=== PATIENT | male | born 1985 | race Two or more races ===

== ENCOUNTER 2024-11-29 20:49 | Inpatient (IN) | payer OTHER ==
[~2024-11-29] VITALS: Ht 170.2 cm; Wt 84.0 kg
--- NOTE | 2024-11-29 21:07 | ED.PDOC ---
HPI Comments 39-year-old came to ER by EMS for NSTEMI. Per EMS, about 8 hours ago, patient was found unresponsive secondary to overdose of opiates. CPR was initiated by fire department then, as 8mg of Narcan was given. As paramedics came, IV access was obtained, and another 2 mg of Narcan was given. Patient regained consciousness, and patient was brought to the [facility]. Diagnostics were done and noted that troponin levels were elevated so patient was transferred here for further evaluation and management, working impression of NSTEMI. At this time, patient complaining of 5/10 chest pains. Chief Complaint: Chest Pains Time Seen by MD: 21:06 Reviewed Notes: Nurses Notes Allergies: Coded Allergies: NO KNOWN ALLERGIES (Unverified , 11/29/24) Information Source: Patient Mode of Arrival: Ambulatory Severity: Mild Timing: Hours Duration: Intermittent Prehospital treatment: CPR Location: Substernal Radiation: No Radiation Quality: Aching Onset: Other (s/p CPR) Cardiac Risk Factors: Other (drugs) PE Risk Factors: Recent Trauma Past Medical History PAST MEDICAL HISTORY: Denies Surgical History: Denies all surgeries Family History Family History: Reviewed,noncontributory to illness Social History Smoker: Non-Smoker Alcohol: Denies ETOH Use Drugs: Other Lives In: Home Constitutional: denies: chills, diaphoresis, fatigue, fever, malaise, sweats, weakness, others EENTM: denies: blurred vision, double vision, ear bleeding, ear discharge, ear drainage, ear pain, ear ringing, eye pain, eye redness, hearing loss, mouth pain, mouth swelling, nasal discharge, nose bleeding, nose congestion, nose pain, photophobia, tearing, throat pain, throat swelling, voice changes, others Respiratory: denies: cough, hemoptysis, orthopnea, SOB at rest, shortness of breath, SOB with excertion, stridor, wheezing, others Cardiovascular: reports: chest pain; denies: dizzy spells, diaphoresis, Dyspnea on exertion, edema, irregular heart beat, left arm pain, lightheadedness, palpitations, PND, syncope, others Gastrointestinal: denies: abdomen distended, abdominal pain, blood streaked bowels, constipated, diarrhea, dysphagia, difficulty swallowing, hematemesis, melena, nausea, poor appetite, poor fluid intake, rectal bleeding, rectal pain, vomiting, others Genitourinary: denies: burning, dysuria, flank pain, frequency, hematuria, incontinence, penile discharge, penile sore, pain, testicle pain, testicle swelling, urgency, others Neurological: denies: dizziness, fainting, headache, left sided numbness, left sided weakness, numbness, paresthesia, pre-existing deficit, right sided numbness, right sided weakness, seizure, speech problems, tingling, tremors, weakness, others Musculoskeletal: denies: back pain, gout, joint pain, joint swelling, muscle pain, muscle stiffness, neck pain, others Integumetry: denies: bruises, change in color, change in hair/nails, dryness, laceration, lesions, lumps, rash, wounds, others Allergic/Immunocompromised: denies: Difficulty Healing, Frequent Infections, Hives, Itching, others Hematologic/Lymphatic: denies: anemia, blood clots, easy bleeding, easy bruising, swollen glands, others Endocrine: denies: excessive hunger, excessive sweating, excessive thirst, excessive urination, flushing, intolerance to cold, intolerance to heat, unexplained weight gain, unexplained weight loss, others Psychiatric: denies: anxiety, bipolar disorder, depression, hopeless, panic disorder, schizophrenia, sleepless, suicidal, others Physical Exam General Appearance: No Apparent Distress, Normal HEENT: Normal ENT Inspection, Pharynx Normal, TMs Normal Neck: Full Range of Motion, Non-Tender, Normal, Normal Inspection Respiratory: Chest Non-Tender, Lungs Clear, No Accessory Muscle Use, No Respiratory Distress, Normal Breath Sounds Cardiovascular: No Edema, No JVD, No Murmur, No Gallop, Normal Peripheral Puls es, Regular Rate/Rhythm Breast Exam: Deferred Gastrointestinal: No Organomegaly, Non Tender, No Pulsatile Mass, Normal Bowel Sounds, Soft Genitalia: Deferred Pelvic: Deferred Rectal: Deferred Extremities: No calf tenderness, Normal capillary refill, Normal inspection, Normal range of motion, Non-tender, No pedal edema Musculoskeletal : Apperance: Normal Neurologic: Alert, clothing cutter II-XII nml as Tested, No Motor Deficits, Normal Affect, Normal Mood, No Sensory Deficits Cerebellar Function: Normal Reflexes: Normal Skin: Dry, Normal Color, Warm Lymphatic: No Adenopathy Was a procedure done? Was a procedure done?: No CP Differential Dx Differential Diagnosis: Angina, Anxiety / Panic Attack Differential Diagnosis: Angina, Chest Wall Pain, Costochondritis, Esophageal reflux/spasm, Gastritis, Myocardial Infarction X-Ray, Labs, Meds, VS Vital Signs Date Time Temp Pulse Resp B/P (MAP) Pulse Ox O2 Delivery O2 Flow Rate FiO2 11/29/24 21:28 98.3 103 18 114/55 (74) 95 98.3 11/29/24 20:50 95 11/29/24 20:49 97.9 104 18 108/56 (73) 97 97.9 Lab Test 11/29/24 21:07 Range/Units White Blood Count 10.8 4.4-10.8 10^3/uL Red Blood Count 5.58 4.5-5.90 10^6/uL Hemoglobin 15.2 13.5-17.5 g/dL Hematocrit 44.8 41.0-53.0 % Mean Corpuscular Volume 80.2 80.0-100.0 fL Mean Corpuscular Hemoglobin 27.2 L 28.0-32.0 pg Mean Corpuscular Hemoglobin Concent 33.9 32.0-36.0 g/dL Red Cell Distribution Width 14.0 11.8-14.3 % Platelet Count 273 140-450 10^3/uL Mean Platelet Volume 7.2 6.9-10.8 fL Neutrophils (%) (Auto) 71.7 37.0-80.0 % Lymphocytes (%) (Auto) 20.6 10.0-50.0 % Monocytes (%) (Auto) 7.0 0.0-12.0 % Eosinophils (%) (Auto) 0.3 0.0-7.0 % Basophils (%) (Auto) 0.4 0.0-2.0 % Neutrophils # (Auto) 7.7 1.6-8.6 10 ^3/uL Lymphocytes # (Auto) 2.2 0.4-5.4 10 ^3/uL Monocytes # (Auto) 0.8 0-1.3 10 ^3/uL Eosinophils # (Auto) 0 0-0.8 10 ^3/uL Basophils # (Auto) 0 0-0.2 10 ^3/uL Nucleated Red Blood Cells 0.3 % Sodium Level 140 136-145 mmol/L Potassium Level 4.4 3.5-5.1 mmol/L Chloride Level 110 H 98-107 mmol/L Carbon Dioxide Level 21 20-31 mmol/L Anion Gap 9 5-15 Blood Urea Nitrogen 9 9-23 mg/dL Creatinine 0.84 0.700-1.30 mg/dL Glomerular Filtration Rate Calc 114 >90 mL/min BUN/Creatinine Ratio 10.7 10.0-20.0 Serum Glucose 102 74-106 mg/dL Calcium Level 9.4 8.7-10.4 mg/dL Troponin I High Sensitivity 310 *H </=54 ng/L Time of 1ST Reevaluation: 21:01 Reevaluation 1ST: Unchanged Patient Education/Counseling: Diagnosis, Treatment Family Education/Counseling: No Family Present Departure 1 Departure Time of Disposition: 22:07 (Patient presented with chest pain that was concerning for possible STEMI, ACS, PE, Pneumonia, Muscle Strain, COPD, Dissection. Data: 1. I ordered and reviewed the result of at least 3 labs inclu ding a CBC, BMP, and Troponin. 2. I independently interpreted the following tests: EKG which shows left bundle-branch and Chest X-ray which shows benign chest.Risk:This patient has a high risk of morbidity due to further diagnostic testing or treatment and may suffer from an acute cardiac or respiratory disorder. Workup reveals concern for ACS and overdose and patient should be adm itted for further workup and possible expert consultation. ) Impression: Primary Impression: Acute chest pain Additional Impressions: Elevated troponin Opiate overdose Qualified Codes: T40.601A - Poisoning by unspecified narcotics, accidental (unintentional), initial encounter Disposition: ADMITTED INPATIENT Admit to: Tele Condition: Serious Critical Care Note Critical Care Time?: Yes (35 min-critical care time only) Critical care comment: Chest pain, overdose Authorized and Performed by: Frida Mark MD Total critical care time: Approximately 39 minutes Due to a high probability of clinically significant, life threatening deterioration, the patient required my highest level of preparedness to intervene emergently and I personally spent this critical care time directly and personally managing the patient. This critical care time included obtaining a history; examining the patient; pulse oximetry; ordering and review of studies; arranging urgent treatment with development of a management plan; evaluation of patient's response to treatment; frequent reassessment; and, discussions with other providers. This critical care time was performed to assess and manage the high probability of imminent, life-threatening deterioration that could result in multi-organ failure. It was exclusive of separately billable procedures and treating other patients and teaching time. Please see my other sections and the rest of the note for further information on patient assessment and treatment. Stability Stability form required: No Heart Score Heart Score: Heart Score Response (Comments) Value History Slightly Suspicious 0 EKG Normal 0 Age <45 0 Risk Factors 1 or 2 risk factors 1 Troponin 1-2 x's Normal limit 1 Total 2 I personally scribed for FRIDA MARK MD ([email or web address]) on 11/29/24 at 21:07. Electronically submitted by Rtio Gray ([email or web address]). FRIDA MARK MD November 29, 2024 21:07
[2024-11-29 21:15] LABS: Basophils # (auto) 0 10 ^3/uL (0-0.2); Basophils % (auto) 0.4 % (0.0-2.0); Eosinophils # (auto) 0 10 ^3/uL (0-0.8); Eosinophils % (auto) 0.3 % (0.0-7.0); Hematocrit 44.8 % (41.0-53.0); Hemoglobin 15.2 g/dL (13.5-17.5); Lymphocytes # (auto) 2.2 10 ^3/uL (0.4-5.4); Lymphocytes % (auto) 20.6 % (10.0-50.0); Mean Corpuscular Hemoglobin 27.2 pg (28.0-32.0); Mean Corpuscular Hgb Conc. 33.9 g/dL (32.0-36.0); Mean Corpuscular Volume 80.2 fL (80.0-100.0); Monocytes # (auto) 0.8 10 ^3/uL (0-1.3); Neutrophils # (auto) 7.7 10 ^3/uL (1.6-8.6); Neutrophils % (auto) 71.7 % (37.0-80.0); Nucleated Red Blood Cells % 0.3 %; Platelet Count (auto) 273 10^3/uL (140-450); Red Blood Cells 5.58 10^6/uL (4.5-5.90); White Blood Cell 10.8 10^3/uL (4.4-10.8)
[2024-11-29 21:26] LABS: Potassium 4.4 mmol/L (3.5-5.1); Sodium 140 mmol/L (136-145)
[2024-11-29 21:27] LABS: Anion Gap 9 (5-15); Carbon Dioxide 21 mmol/L (20-31)
[2024-11-29 21:28] VITALS: PULSE 103; RESP 18; O2SAT 95
[2024-11-29 21:28] LABS: Calcium 9.4 mg/dL (8.7-10.4); Chloride 110 mmol/L (98-107)
[2024-11-29 21:32] LABS: BUN/Creatinine Ratio 10.7 (10.0-20.0); Blood Urea Nitrogen 9 mg/dL (9-23); Glucose 102 mg/dL (74-106)
--- NOTE | 2024-11-29 21:59 | DVH ---
CHEST RADIOGRAPH Indication: chest pain Technique: Single frontal view of the chest was obtained COMPARISON: None FINDINGS: Lines and Tubes: None Lungs: Clear Pleura: No effusion. No pneumothorax. Cardiomediastinal contours: Unremarkable IMPRESSION: No abnormality demonstrated.
--- NOTE | 2024-11-29 23:41 | DVHHP2 ---
History of Present Illness History of Present Illness Patient is 39 years old male with past medical history of seizure disorder on Keppra was brought in from [facility] due to an STEMI. As per chart review and history taken from with the patient patient overdose opiate today and use on unresponsive, ferrous 72 gave him [place] mg also started CPR, after EMS arrival he also had 2 mg [place]. Patient was taken to [facility] where he was found to have elevated troponin I. Patient was transferred to [facility] for further evaluation and care of an NSTEMI. Patient denied suicide attempt of overdose. As per patient he also had history of brain abscess and cardiac involvement from IV drug abuse. Patient denied any chest pain or shortness of breath, fever, diarrhea, acute joint pain or swelling. Initial lab workup revealed troponin 310. EKG with a sinus rhythm. UDS positive for methamphetamine and fentanyl. Past Medical History Seizure disorder Past Surgical History None Family History Mom had diabetes mellitus dad had coronary artery disease Past Social History Patient lives with his dad, use fentanyl, used to use methamphetamine, smoke half a pack of cigarettes, denies alcohol zone. Home meds Keppra 1000 mg b.i.d. Review of Systems Review of Systems Allergy- NKDA Patient was seen today at the bedside. Cardiovascular- deny acute chest pain or shortness of breath or cough or palpitation Respiratory denies cough or short of breath or wheezing Gastrointestinal- denies any rectal bleeding, nausea or vomiting Musculoskeletal-denies acute joint swelling or tenderness or redness Neurological- denies acute dysarthria, dysphagia, change in vision Psychiatry- denies depression or SI or HI Skin- denies acute rash or purpura Allergies: Coded Allergies: NO KNOWN ALLERGIES (Unverified , 11/29/24) Exam Vital Signs Vital Signs Date Time Temp Pulse Resp B/P (MAP) Pulse Ox O2 Delivery O2 Flow Rate FiO2 11/29/24 22:08 96 11/29/24 21:28 18 95 Room Air* 0 21 11/29/24 21:28 98.3 114/55 (74) 98.3 Exam General examination- , alert, oriented, spider telangiectasia on the chest HEENT- PEERLA, no acute nasal discharge Cardiovascular- S1-S2 audible, rate and rhythm regular, no murmur, chest wall tenderness++ Respiratory- CTAB, no wheeze or rhonchi Gastrointestinal-nontender, bowel sound+. Nondistended Musculoskeletal-no acute joint swelling or tenderness or redness Lower extremity- no leg edema Neurological- cranial nerves intact , no acute dysarthria or dysphagia Psychiatry- denies depression or SI or HI Skin- no acute rash or purpura Labs/Xrays Labs Test 11/29/24 22:26 11/29/24 21:07 Range/Units Troponin I High Sensitivity 276 *H </=54 ng/L White Blood Count 10.8 4.4-10.8 10^3/uL Red Blood Count 5.58 4.5-5.90 10^6/uL Hemoglobin 15.2 13.5-17.5 g/dL Hematocrit 44.8 41.0-53.0 % Mean Corpuscular Volume 80.2 80.0-100.0 fL Mean Corpuscular Hemoglobin 27.2 L 28.0-32.0 pg Mean Corpuscular Hemoglobin Concent 33.9 32.0-36.0 g/dL Red Cell Distribution Width 14.0 11.8-14.3 % Platelet Count 273 140-450 10^3/uL Mean Platelet Volume 7.2 6.9-10.8 fL Neutrophils (%) (Auto) 71.7 37.0-80.0 % Lymphocytes (%) (Auto) 20.6 10.0-50.0 % Monocytes (%) (Auto) 7.0 0.0-12.0 % Eosinophils (%) (Auto) 0.3 0.0-7.0 % Basophils (%) (Auto) 0.4 0.0-2.0 % Neutrophils # (Auto) 7.7 1.6-8.6 10 ^3/uL Lymphocytes # (Auto) 2.2 0.4-5.4 10 ^3/uL Monocytes # (Auto) 0.8 0-1.3 10 ^3/uL Eosinophils # (Auto) 0 0-0.8 10 ^3/uL Basophils # (Auto) 0 0-0.2 10 ^3/uL Nucleated Red Blood Cells 0.3 % Sodium Level 140 136-145 mmol/L Potassium Level 4.4 3.5-5.1 mmol/L Chloride Level 110 H 98-107 mmol/L Carbon Dioxide Level 21 20-31 mmol/L Anion Gap 9 5-15 Blood Urea Nitrogen 9 9-23 mg/dL Creatinine 0.84 0.700-1.30 mg/dL Glomerular Filtration Rate Calc 114 >90 mL/min BUN/Creatinine Ratio 10.7 10.0-20.0 Serum Glucose 102 74-106 mg/dL Calcium Level 9.4 8.7-10.4 mg/dL Assessment/Plan Assessment/Plan Assessment and plan NSTEMI likely type 2 demand lead ischemia Metabolic encephalopathy likely due to opiate overdose Status post CPR Opiate overdose Spider telangiectasia on the chest Seizure History of brain abscess History of IV drug abuse, methamphetamine, fentanyl UDS positive for methamphetamine and fentanyl. Plan Ordered cardiology consult Ordered echo 2D Ordered UDS, serum alcohol Ordered hemodynamic panel Ordered hepatitis panel Ordered ultrasound of the gallbladder to rule out cirrhosis of liver Ordered aspirin and atorvastatin Restarted home medication Keppra 1000 mg p.o. b.i.d. Patient was counseled about the effect of substance abuse on health Goals of care, Code status ; discussed with >15 minutes PUD prophylaxis: Pantoprazole DVT prophylaxis: Lovenox Plan discussed with Dr. Hyman , nursing staff, Total time spent on patient evaluation, chart review, assessment and plan, discussion discussion >35 minutes Plan discussed with: Patient, Other (RN) Date of Service: November 29, 2024 Billing Provider: TAWNYA HYMAN MD Common Visit Codes: 16061-ONYGAUB INP/OBS CARE (HIGH) Secondary Visit Codes: 24426-JJDIQRDG CARE PLAN 30 MINUTES JENNIFER POLLARD RESIDENT November 29, 2024 23:41
[2024-11-29] MEDS ORDERED: DOCUSATE SOD 100 MG CAP PO PRN (23:45)
[2024-11-29] MEDS ORDERED: ACETAMINOPHEN 325 MG TAB PO PRN (23:45)
[2024-11-29] MEDS ORDERED: NITROGLYCERIN 0.4 MG SL TAB SL PRN (23:45)
[2024-11-29] MEDS ORDERED: ONDANSETRON HCL 4 MG/2 ML VIAL IV PRN (23:45)
[2024-11-30] MEDS: levETIRAcetam 500 MG TAB PO ONE (00:35)
[2024-11-30] MEDS: ATORVASTATIN 20 MG TAB PO ONE (00:36)
[2024-11-30] MEDS: PANTOPRAZOLE 40 MG TAB PO ONE (00:36)
[2024-11-30] MEDS: ASPirin 81 mg TAB PO ONE (00:36)
--- NOTE | 2024-11-30 01:08 | DVH ---
INDICATION: RULE OUT HEPATITIS OR CIRRHOSIS OF LIVER TECHNIQUE: Multiple real-time sonographic images were obtained of the right upper quadrant. COMPARISON: None FINDINGS: Liver is within normal limits in size measuring 17.5 cm and echogenicity with no focal lesions identi fied. There is no intrahepatic or extrahepatic ductal dilatation with the common bile duct measuring 4.5 mm . Gallbladder appears unremarkable with no evidence of stones, wall thickening or pericholecystic fluid . Sonographic Bernal's sign was reportedly negative. Right kidney measures 9.3 cm and appears unremarkable with no hydronephrosis. Pancreas is obscured by overlying bowel gas. No free fluid/fluid collection noted. IMPRESSION: Unremarkable right upper quadrant sonogram.
[2024-11-30 02:18] LABS: Urine Bacteria None Seen /hpf (None Seen)
[2024-11-30 02:22] LABS: Albumin 4.6 g/dL (3.2-4.8); Blood Alcohol 3.3 mg/dL (<10); Magnesium 2.1 mg/dL (1.6-2.6); Total Protein 6.7 g/dL (5.7-8.2)
[2024-11-30 02:23] LABS: Bilirubin, Direct 0.4 mg/dL (<0.3); Bilirubin, Total 1.2 mg/dL (0.2-1.0)
[2024-11-30 02:33] LABS: Urine Blood Negative /uL (Negative); Urine Clarity Clear (Clear); Urine Color Yellow (Yellow); Urine Mucus FEW (None Seen); Urine Protein, UAD Negative (Negative); Urine Squamous Epithelial Cell FEW /hpf (<5); Urine Urobilinogen Normal (Negative); Urine WBC 6 /HPF (0-3); Urine pH 5.5 (5.0-9.0)
[2024-11-30 02:34] LABS: Urine Specific Gravity > 1.050 (1.001-1.035)
[2024-11-30 02:49] LABS: Amphetamine Screen, Urine Pos (NEGATIVE); Barbiturate Scree,Urine Neg (NEGATIVE); Benzodiazephine Screen, Urine Neg (NEGATIVE); Cannabinoid Screen, Urine Neg (NEGATIVE); Cocaine Screen, Urine Neg (NEGATIVE); Opiate Scree,Urine Neg (NEGATIVE); Phencyclidine Screen, Urine Neg (NEGATIVE)
[2024-11-30 03:38] LABS: Folate (Folic Acid) 21.28 ng/mL (>5.38)
[2024-11-30] MEDS ORDERED: ASPI1TAB20 PO (04:54)
[2024-11-30] MEDS ORDERED: LEVE100012 PO (04:54)
[2024-11-30] MEDS ORDERED: QUET400T4 PO (04:54)
[2024-11-30] MEDS: SODIUM CHLOR 0.9% PF (SALINE LOCK) 10ML VIAL/SYR IV SCH (05:28)
[2024-11-30] MEDS: PANTOPRAZOLE 40 MG TAB PO SCH (05:30)
[2024-11-30 05:42] LABS: Basophils # (auto) 0 10 ^3/uL (0-0.2); Basophils % (auto) 0.3 % (0.0-2.0); Eosinophils # (auto) 0 10 ^3/uL (0-0.8); Monocytes # (auto) 0.8 10 ^3/uL (0-1.3)
[2024-11-30 05:49] LABS: Eosinophils % (auto) 0.4 % (0.0-7.0); Hematocrit 44.2 % (41.0-53.0); Lymphocytes # (auto) 2.1 10 ^3/uL (0.4-5.4); Lymphocytes % (auto) 23.6 % (10.0-50.0); Mean Corpuscular Hemoglobin 27.1 pg (28.0-32.0); Mean Corpuscular Volume 79.6 fL (80.0-100.0); Monocytes % (auto) 8.5 % (0.0-12.0); Neutrophils % (auto) 67.2 % (37.0-80.0); Nucleated Red Blood Cells % 0.2 %; Platelet Count (auto) 240 10^3/uL (140-450); Red Blood Cells 5.55 10^6/uL (4.5-5.90); Red Cell Distribution Width 13.8 % (11.8-14.3); White Blood Cell 8.9 10^3/uL (4.4-10.8)
[2024-11-30 06:09] LABS: Albumin 4.4 g/dL (3.2-4.8); Alkaline Phosphatase 68 U/L (46-116); Anion Gap 8 (5-15); BUN/Creatinine Ratio 7.7 (10.0-20.0); Calcium 9.4 mg/dL (8.7-10.4); Carbon Dioxide 22 mmol/L (20-31); Glucose 85 mg/dL (74-106); Potassium 3.9 mmol/L (3.5-5.1); Sodium 138 mmol/L (136-145); Total Protein 6.5 g/dL (5.7-8.2)
[2024-11-30 06:26] LABS: Alanine Aminotransferase 56 U/L (7-40); Aspartate Aminotransferase 54 U/L (13-40); Bilirubin, Total 1.3 mg/dL (0.2-1.0); Blood Urea Nitrogen 6 mg/dL (9-23); Chloride 108 mmol/L (98-107)
[2024-11-30 08:12] VITALS: BP 119/58; PULSE 97; RESP 20; TEMP 97.8; O2SAT 100
[2024-11-30] MEDS: levETIRAcetam 500 MG TAB PO SCH (09:23)
[2024-11-30] MEDS: ENOXAPARIN SOD 40 MG/0.4 ML SYRINGE SC SCH (09:24)
[2024-11-30] MEDS: ASPirin 81 mg TAB PO SCH (09:25)
[2024-11-30 09:40] VITALS: BP 119/58; PULSE 81
--- NOTE | 2024-11-30 09:50 | DVHINCON2 ---
Date Seen: November 30, 2024 Referring Physician MD [place] resident Reason for Consultation NSTEMI History of Present Illness This is a 39-year-old male patient who presents to the emergency room with chief complaint of overdose. According to records, the patient was found unresponsive in the field and was given brief CPR as well as Narcan 8 mg before becoming responsive. It is unclear if the patient ever lost pulse. The patient was taken to [facility] where he was found to have an elevated troponin level and subsequently transferred to this facility for further evaluation. At the time of assessment, the patient reports bilateral ribcage pain, worse upon deep inhalation and positional changes. Initial twelve lead electrocardiogram reveals normal sinus rhythm with left bundle branch block. Initial troponin level of 310ng/L with down trend thereafter. Significant past medical history includes aortic valve insufficiency, seizure disorder, tobacco use, and drug use. 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 Past Medical History Past medical history reviewed. No other significant than mentioned above. Past Surgical History Umbilical hernia repair Family History: Patient reports no known family medical history. Family History Family history reviewed. Social History Patient admits to fentanyl and amphetamine use Patient has a 11.5 pack-year history, smokes half pack per day Denies any alcohol use Allergies: Coded Allergies: NO KNOWN ALLERGIES (Unverified , 11/29/24) Home Meds Reported Medications Aspirin (Aspir-81) 81 Mg Tab, 1 TAB PO DAILY, #30 TAB 5 Refills 11/30/24 Quetiapine Fumerate (Seroquel Xr) 400 Mg Tab, 1 TAB PO QPM, #30 TAB 1 Refill 11/30/24 Levetiracetam (Keppra) 1,000 Mg Tab, 1 TAB PO BID, #60 TAB 5 Refills 11/30/24 Home Meds Home medications reviewed. Current Medications Current Medications Medications (Trade) Dose Ordered Sig/Ced Route PRN Reason Start Time Stop Time Status Last Admin Sodium Chloride (Saline Lock Ns) 10 ml Q8HR IV 11/30/24 06:00 11/30/24 05:28 Ondansetron HCl (Zofran) 4 mg Q4HP PRN IV NAUSEA / VOMITING 11/29/24 23:45 Docusate Sodium (Colace Capsule) 100 mg BIDPRN PRN PO FOR CONSTIPATION 11/29/24 23:45 Enoxaparin Sodium (Lovenox) 40 mg DAILY SC 11/30/24 10:00 Acetaminophen (Tylenol Tablet) 650 mg Q6HP PRN PO PAIN SCALE 1-3 OR TEMP>100.4 11/29/24 23:45 Nitroglycerin (Ntrostat Sublingual) 0.4 mg Q5MINP PRN SL FOR CHEST PAIN 11/29/24 23:45 Aspirin 81 mg DAILY PO 11/30/24 10:00 11/30/24 09:25 Atorvastatin Calcium (Lipitor) 20 mg HS PO 11/30/24 22:00 Pantoprazole Sodium (Protonix Tablet) 40 mg DAILY@0600 PO 11/30/24 06:00 11/30/24 05:30 Levetiracetam (Keppra Tablet) 1,000 mg BID PO 11/30/24 10:00 11/30/24 09:23 Review of Systems Constitutional: No symptom reported Ears, Nose, & Throat: No symptom reported Eyes: No symptom reported Neurological: No symptoms reported Pulmonary/Respiratory: No symptoms reported Cardiovascular: No symptom reported Gastrointestinal: No symptom reported Genitourinary: No symptom reported Musculoskeletal: Ribcage pain Skin: No symptom reported Psychiatric: No symptom reported Endocrine: No symptom reported Hematologic/Lymphatic: No symptom reported Vital Signs Vital Signs Date Time Temp Pulse Resp B/P (MAP) Pulse Ox O2 Delivery O2 Flow Rate FiO2 11/30/24 08:12 97.8 97 20 119/58 (78) 100 97.8 11/29/24 21:28 Room Air* 0 21 Physical Exam General Appearance: Cooperative. Well-developed. Well-nourished. No acute distress. Pulmonary/Respiratory: Clear, bilateral breaths sounds. Cardiovascular/Chest: Regular rate and rhythm. Peripheral Pulses: 2+ Radial (R). 2+ Radial (L). Abdominal Exam: Normal bowel sounds. Ankle Exam: Negative ankle edema Lower extremities: Negative lower extremity edema Neuro/Mental Status: A/OX4, coherent. Thoughts/Psych: Normal thought pattern. Appropriate mood and affect. Good judgment and insight. Appearance: No acute distress. Skin Exam: Normal inspection. Normal color. Warm and dry. Labs/Diagnostic Data Labs Test 11/30/24 05:16 11/30/24 01:45 11/30/24 01:43 11/29/24 21:07 Range/Units White Blood Count 8.9 4.4-10.8 10^3/uL Red Blood Count 5.55 4.5-5.90 10^6/uL Hemoglobin 15.0 13.5-17.5 g/dL Hematocrit 44.2 41.0-53.0 % Mean Corpuscular Volume 79.6 L 80.0-100.0 fL Mean Corpuscular Hemoglobin 27.1 L 28.0-32.0 pg Mean Corpuscular Hemoglobin Concent 34.0 32.0-36.0 g/dL Red Cell Distribution Width 13.8 11.8-14.3 % Platelet Count 240 140-450 10^3/uL Mean Platelet Volume 7.3 6.9-10.8 fL Neutrophils (%) (Auto) 67.2 37.0-80.0 % Lymphocytes (%) (Auto) 23.6 10.0-50.0 % Monocytes (%) (Auto) 8.5 0.0-12.0 % Eosinophils (%) (Auto) 0.4 0.0-7.0 % Basophils (%) (Auto) 0.3 0.0-2.0 % Neutrophils # (Auto) 6.0 1.6-8.6 10 ^3/uL Lymphocytes # (Auto) 2.1 0.4-5.4 10 ^3/uL Monocytes # (Auto) 0.8 0-1.3 10 ^3/uL Eosinophils # (Auto) 0 0-0.8 10 ^3/uL Basophils # (Auto) 0 0-0.2 10 ^3/uL Nucleated Red Blood Cells 0.2 % Sodium Level 138 136-145 mmol/L Potassium Level 3.9 3.5-5.1 mmol/L Chloride Level 108 H 98-107 mmol/L Carbon Dioxide Level 22 20-31 mmol/L Anion Gap 8 5-15 Blood Urea Nitrogen 6 L 9-23 mg/dL Creatinine 0.78 0.700-1.30 mg/dL Glomerular Filtration Rate Calc 117 >90 mL/min BUN/Creatinine Ratio 7.7 L 10.0-20.0 Serum Glucose 85 74-106 mg/dL Hemoglobin A1c 5.1 <5.7 % A1C Calcium Level 9.4 8.7-10.4 mg/dL Total Bilirubin 1.3 H 0.2-1.0 mg/dL Aspartate Amino Transferase (AST) 54 H 13-40 U/L Alanine Aminotransferase (ALT) 56 H 7-40 U/L Alkaline Phosphatase 68 46-116 U/L Ammonia 17 11-32 umol/L Total Protein 6.5 5.7-8.2 g/dL Albumin 4.4 3.2-4.8 g/dL Urine Color Yellow Yellow Urine Clarity Clear Clear Urine pH 5.5 5.0-9.0 Urine Specific Omer > 1.050 H 1.001-1.035 Urine Protein Negative Negative Urine Ketones 1+ H Negative Urine Blood Negative Negative /uL Urine Nitrite Negative Negative Urine Bilirubin Negative Negative Urine Urobilinogen Normal Negative mg/dL Urine Leukocyte Esterase Negative Negative /uL Urine RBC 5 0 - 3 /hpf Urine Microscopic WBC 6 H 0-3 /HPF Urine Squamous Epithelial Cells Few <5 /hpf Urine Bacteria None seen None Seen /hpf Urine Mucus Few None Seen Urine Glucose Normal Normal mg/dL Troponin I High Sensitivity 193 *H </=54 ng/L Urine Opiates Screen Neg NEGATIVE Urine Fentanyl Screen Pos NEGATIVE Urine Barbiturates Screen Neg NEGATIVE Urine Phencyclidine Screen Neg NEGATIVE Urine Amphetamines Screen Pos NEGATIVE Urine Benzodiazepines Screen Neg NEGATIVE Urine Cocaine Screen Neg NEGATIVE Urine Cannabinoids Screen Neg NEGATIVE Magnesium Level 2.1 1.6-2.6 mg/dL Direct Bilirubin 0.4 H <0.3 mg/dL Vitamin B12 Level 199 L 211-911 pg/mL Vitamin D 25-Hydroxy 40.5 30.0-100 ng/mL Folic Acid 21.28 >5.38 ng/mL Plasma/Serum Blood Alcohol 3.3 <10 mg/dL Thyroid Stimulating Hormone (TSH) 1.16 0.55-4.78 uIU/mL Assessment Opiate overdose s/p cardiopulmonary resuscitation NSTEMI, likely type II secondary to above Chest pain, likely musculoskeletal Rule out structural heart disease Aortic valve insufficiency Seizure disorder Tobacco use Polysubstance abuse Plan/Recommendation We will continue with the following plan/recommendations (Dr. Zendejas): We will proceed with obtaining a transthoracic echocardiogram to evaluate cardiac function. Patient complains of bilateral ribcage pain, likely secondary to CPR that the patient underwent. Elevated troponin levels likely type 2 from demand mismatch ischemia secondary to opiate overdose as well as brief CPR that was initiated while the patient was in the field. Continue with close cardiac surveillance and notify Cardiology for any ECG changes. Thank you for allowing us to care for this patient. Please call with any questions or concerns. Critical care time spent: 41 minutes This medical document was created using an electronic medical record system with voice recognition software and computerized dictation system. Although this document has been carefully reviewed, there might still be some phonetic and typographical errors. Occasional wrong-word or ``sound-alike substitutions may have occurred due to the inherent limitations of voice recognition software. These areas are purely typographical due to imperfections of the software programs and do not reflect any compromise in the patient's medical care. Please read the chart carefully and recognize, using context, where these substitutions have occurred. Plan discussed with: Patient NYHA Physical activity limitations: NA Date of Service: November 30, 2024 Billing Provider: GEORGES FERGUSON Cardiology Common Codes: 71135-HCBHIEG INP/OBS CARE (High) Cardiology Consultation Codes: 82938-[id number] CONSULT <45MIN GEOREGS FERGUSON November 30, 2024 09:49
--- NOTE | 2024-11-30 10:35 | ECG ---
[facility] Test Date: 2024-11-29 Test Time: 22:08:36 Pat Name: JANICE MIMS Department: ED Room: [address] [place] [address] A Gender: M Data Security Coordinator: SHWETHA : 1985 Requested By: FRIDA EVANGELISTA Order Number: [id number] Reading MD: Ming Vera Measurements Intervals [place] Rate: 96 P: 32 MT: 144 QRS: -74 QRSD: 122 T: 56 QT: 381 QTc: 482 Interpretive Statements Sinus rhythm Left bundle branch block Baseline wander in lead(s) III,V1,V2 Electronically Signed On 12-02-2024 22:14:21 PDT by Ming Vera Please click the below link to view image of tracing.
--- NOTE | 2024-11-30 10:35 | ECG ---
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
--- NOTE | 2024-11-30 10:35 | ECG ---
[facility] Test Date: 2024-11-29 Test Time: 20:50:38 Pat Name: JANICE MIMS Department: ED Room: [address] [place] [address] A Gender: M Cushion Cover Inspector: SHWETHA : 1985 Requested By: FRIDA EVANGELISTA Order Number: [id number] Reading MD: Ming Vera Measurements Intervals [place] Rate: 95 P: 29 RI: 140 QRS: -68 QRSD: 122 T: 61 QT: 377 QTc: 474 Interpretive Statements Sinus rhythm Left bundle branch block Baseline wander in lead(s) V1 Electronically Signed On 12-02-2024 22:14:09 PDT by Ming Vera Please click the below link to view image of tracing.
[2024-11-30 11:13] LABS: Hepatitis A Total Antibody Positive (Negative)
[2024-11-30 11:18] LABS: Hepatitis A Ab IgM Negative; Hepatitis B Core IgM Negative (Negative); Hepatitis B Surface Antibody Positive (Negative); Hepatitis B Surface Antigen Negative (Negative); Hepatitis C Antibody Negative (Negative)
--- NOTE | 2024-11-30 12:41 | DVHPN2 ---
Reviewed: Care Plan, H&P, Labs, Medications, Previous Orders, Radiology Changes from previous H/P or p: No Changes Objective Vitals Vital Signs Date Time Temp Pulse Resp B/P (MAP) Pulse Ox O2 Delivery O2 Flow Rate FiO2 11/30/24 09:40 81 119/58 (78) 11/30/24 08:12 97.8 20 100 97.8 11/29/24 21:28 Room Air* 0 21 Intake/Output Intake and Output 11/30/24 07:00 Intake Total 200 ml Balance 200 ml Intake Oral 200 ml General Appearance: Alert, Oriented X3 Cardiovascular: Regular rate, Normal S1 Abdomen: Normal bowel sounds, Soft Neuro: Normal gait, Normal speech Medications Current Medications Medications Dose Ordered Sig/Ced Route Start Time Stop Time Status Last Admin Dose Admin Sodium Chloride 10 ml Q8HR IV 11/30/24 06:00 11/30/24 05:28 10 ML Ondansetron HCl 4 mg Q4HP PRN IV 11/29/24 23:45 Docusate Sodium 100 mg BIDPRN PRN PO 11/29/24 23:45 Enoxaparin Sodium 40 mg DAILY SC 11/30/24 10:00 Acetaminophen 650 mg Q6HP PRN PO 11/29/24 23:45 Nitroglycerin 0.4 mg Q5MINP PRN SL 11/29/24 23:45 Aspirin 81 mg DAILY PO 11/30/24 10:00 11/30/24 09:25 81 MG Atorvastatin Calcium 20 mg HS PO 11/30/24 22:00 Pantoprazole Sodium 40 mg DAILY@0600 PO 11/30/24 06:00 11/30/24 05:30 40 MG Levetiracetam 1,000 mg BID PO 11/30/24 10:00 11/30/24 09:23 1,000 MG Laboratory Results Laboratory Tests 11/30/24 05:16 Chemistry Test 11/29/24 21:07 11/30/24 01:43 11/30/24 05:16 Calcium Level 9.4 mg/dL (8.7-10.4) 9.4 mg/dL (8.7-10.4) Albumin 4.6 g/dL (3.2-4.8) 4.4 g/dL (3.2-4.8) Magnesium Level 2.1 mg/dL (1.6-2.6) Total Protein 6.7 g/dL (5.7-8.2) 6.5 g/dL (5.7-8.2) LFT Test 11/30/24 01:43 11/30/24 05:16 Alanine Aminotransferase (ALT) 55 U/L (7-40) H 56 U/L (7-40) H Alkaline Phosphatase 69 U/L (46-116) 68 U/L (46-116) Aspartate Amino Transferase (AST) 50 U/L (13-40) H 54 U/L (13-40) H Direct Bilirubin 0.4 mg/dL (<0.3) H Total Bilirubin 1.2 mg/dL (0.2-1.0) H 1.3 mg/dL (0.2-1.0) H HgA1c, TSH Test 11/29/24 21:07 11/30/24 05:16 Thyroid Stimulating Hormone (TSH) 1.16 uIU/mL (0.55-4.78) Hemoglobin A1c 5.1 % A1C (<5.7) Urinalysis Test 11/30/24 01:45 Urine Color Yellow (Yellow) Urine Clarity Clear (Clear) Urine pH 5.5 (5.0-9.0) Urine Specific [place] > 1.050 (1.001-1.035) Urine Protein Negative (Negative) Urine Ketones 1+ (Negative) H Urine Blood Negative /uL (Negative) Urine Nitrite Negative (Negative) Urine Bilirubin Negative (Negative) Urine Urobilinogen Normal mg/dL (Negative) Urine Leukocyte Esterase Negative /uL (Negative) Urine RBC 5 /hpf (0 - 3) Urine Microscopic WBC 6 /HPF (0-3) H Urine Squamous Epithelial Cells Few /hpf (<5) Urine Bacteria None seen /hpf (None Seen) Urine Mucus Few (None Seen) Urine Glucose Normal mg/dL (Normal) Labs and/or images reviewed: Labs reviewed by me, Image(s) reviewed by me Assessment/Plan Assessment/Plan Patient is 39 years old male with past medical history of seizure disorder on Keppra was brought in from [facility] due to an STEMI. As per chart review and history taken from with the patient patient overdose opiate today and use on unresponsive, ferrous 72 gave him [place] mg also started CPR, after EMS arrival he also had 2 mg [place]. Patient was taken to [facility] where he was found to have elevated troponin I. Patient was transferred to [facility] for further evaluation and care of an NSTEMI. Patient denied suicide attempt of overdose. As per patient he also had history of brain abscess and cardiac involvement from IV drug abuse. Patient denied any chest pain or shortness of breath, fever, diarrhea, acute joint pain or swelling. Initial lab workup revealed troponin 310. EKG with a sinus rhythm. UDS positive for methamphetamine and fentanyl. 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 Plan discussed with: Patient Date of Service: November 30, 2024 Billing Provider: ROSHNI KWAN DO Common Visit Codes: [id number] INP/OBS CARE(HIGH) ROSHNI KWAN DO November 30, 2024 12:41
--- NOTE | 2024-11-30 18:22 | DVHSR ---
APPROVED REPORT EXAM: Two-dimensional and M-mode echocardiogram with Doppler and color Doppler. Blood Pressure: 132/86 mmHg INDICATION Chest Pain RISK FACTORS Height: 67, Weight: 304 DIMENSIONS LVDd6.9 (3.8-5.7cm)LA (2D)4.7 (1.9-4.0cm)Aortic Root4.9 (2.0-3.7cm) LVDs4.6 (2.5-4.0cm)LA (MM) (1.9-4.0cm)Aortic Cusp Exc2.5 (1.5-2.0cm) EF (%) 60.0 (55-70%)Rt. Atrium5.0 (1.9-4.0cm)Asc. Aorta cm Mitral Valve MitralMitral Stenosis E wave0.82m/sMV Mean GR.mmHg A wave0.62m/sMV Peak GR.101mmHg E/A ratio1.32D MVAcm2 DECEL [id number] 1/2 [place] Aortic Valve Aortic ValveAortic Stenosis V11.30m/[place] Mean GR.7mmHg V21.77m/[place] Peak GR.13mmHg LVOT Diameter2.6 (1.8-2.4cm)Doppler AVA3.90cm2 Pulmonic Valve V21.19m/s Tricuspid Valve TR Velocity3.27m/s [id number] Conclusion lvef 65% normal lv function normal rv function LV is dilated moderate to sever aortic regurg that is eccentric cannot rule out prolapsed aortic leaflet tip consider cv workup if indicated
[2024-11-30] MEDS ORDERED: ATORVASTATIN 20 MG TAB PO SCH (22:00)
--- NOTE | 2024-12-02 22:40 | DVHDS2 ---
Discharge Summary Date of Admission November 29, 2024 at 23:38 Date of Discharge: Dec 31, 2024 Labs/Diagnostic Data: Laboratory Results Test 11/30/24 05:16 11/30/24 01:45 11/30/24 01:43 11/29/24 21:07 White Blood Count 8.9 10^3/uL (4.4-10.8) Red Blood Count 5.55 10^6/uL (4.5-5.90) Hemoglobin 15.0 g/dL (13.5-17.5) Hematocrit 44.2 % (41.0-53.0) Mean Corpuscular Volume 79.6 fL (80.0-100.0) Mean Corpuscular Hemoglobin 27.1 pg (28.0-32.0) Mean Corpuscular Hemoglobin Concent 34.0 g/dL (32.0-36.0) Red Cell Distribution Width 13.8 % (11.8-14.3) Platelet Count 240 10^3/uL (140-450) Mean Platelet Volume 7.3 fL (6.9-10.8) Neutrophils (%) (Auto) 67.2 % (37.0-80.0) Lymphocytes (%) (Auto) 23.6 % (10.0-50.0) Monocytes (%) (Auto) 8.5 % (0.0-12.0) Eosinophils (%) (Auto) 0.4 % (0.0-7.0) Basophils (%) (Auto) 0.3 % (0.0-2.0) Neutrophils # (Auto) 6.0 10 ^3/uL (1.6-8.6) Lymphocytes # (Auto) 2.1 10 ^3/uL (0.4-5.4) Monocytes # (Auto) 0.8 10 ^3/uL (0-1.3) Eosinophils # (Auto) 0 10 ^3/uL (0-0.8) Basophils # (Auto) 0 10 ^3/uL (0-0.2) Nucleated Red Blood Cells 0.2 % Sodium Level 138 mmol/L (136-145) Potassium Level 3.9 mmol/L (3.5-5.1) Chloride Level 108 mmol/L (98-107) Carbon Dioxide Level 22 mmol/L (20-31) Anion Gap 8 (5-15) Blood Urea Nitrogen 6 mg/dL (9-23) Creatinine 0.78 mg/dL (0.700-1.30) Glomerular Filtration Rate Calc 117 mL/min (>90) BUN/Creatinine Ratio 7.7 (10.0-20.0) Serum Glucose 85 mg/dL (74-106) Hemoglobin A1c 5.1 % A1C (<5.7) Calcium Level 9.4 mg/dL (8.7-10.4) Total Bilirubin 1.3 mg/dL (0.2-1.0) Aspartate Amino Transferase (AST) 54 U/L (13-40) Alanine Aminotransferase (ALT) 56 U/L (7-40) Alkaline Phosphatase 68 U/L (46-116) Ammonia 17 umol/L (11-32) Total Protein 6.5 g/dL (5.7-8.2) Albumin 4.4 g/dL (3.2-4.8) Urine Color Yellow (Yellow) Urine Clarity Clear (Clear) Urine pH 5.5 (5.0-9.0) Urine Specific [place] > 1.050 (1.001-1.035) Urine Protein Negative (Negative) Urine Ketones 1+ (Negative) Urine Blood Negative /uL (Negative) Urine Nitrite Negative (Negative) Urine Bilirubin Negative (Negative) Urine Urobilinogen Normal mg/dL (Negative) Urine Leukocyte Esterase Negative /uL (Negative) Urine RBC 5 /hpf (0 - 3) Urine Microscopic WBC 6 /HPF (0-3) Urine Squamous Epithelial Cells Few /hpf (<5) Urine Bacteria None seen /hpf (None Seen) Urine Mucus Few (None Seen) Urine Glucose Normal mg/dL (Normal) Troponin I High Sensitivity 193 ng/L (</=54) Urine Opiates Screen Neg (NEGATIVE) Urine Fentanyl Screen Pos (NEGATIVE) Urine Barbiturates Screen Neg (NEGATIVE) Urine Phencyclidine Screen Neg (NEGATIVE) Urine Amphetamines Screen Pos (NEGATIVE) Urine Benzodiazepines Screen Neg (NEGATIVE) Urine Cocaine Screen Neg (NEGATIVE) Urine Cannabinoids Screen Neg (NEGATIVE) Magnesium Level 2.1 mg/dL (1.6-2.6) Direct Bilirubin 0.4 mg/dL (<0.3) Vitamin B12 Level 199 pg/mL (211-911) Vitamin D 25-Hydroxy 40.5 ng/mL (30.0-100) Folic Acid 21.28 ng/mL (>5.38) Plasma/Serum Blood Alcohol 3.3 mg/dL (<10) Hepatitis A IgM Antibody Negative Hepatitis A Antibody Total Positive (Negative) Hepatitis B Surface Antigen Negative (Negative) Hepatitis B Surface Antibody Positive (Negative) Hepatitis B Core Total Antibody Negative (Negative) Hepatitis B Core IgM Antibody Negative (Negative) Hepatitis C Antibody Negative (Negative) Thyroid Stimulating Hormone (TSH) 1.16 uIU/mL (0.55-4.78) Other Laboratory Tests 11/30/24 05:16 Brief Hx & Hospital Course: Patient is 39 years old male with past medical history of seizure disorder on Keppra was brought in from [facility] due to an STEMI. As per chart review and history taken from with the patient patient overdose opiate today and use on unresponsive, ferrous 72 gave him [place] mg also started CPR, after EMS arrival he also had 2 mg [place]. Patient was taken to [facility] where he was found to have elevated troponin I. Patient was transferred to [facility] for further evaluation and care of an NSTEMI. Patient denied suicide attempt of overdose. As per patient he also had history of brain abscess and cardiac involvement from IV drug abuse. Patient denied any chest pain or shortness of breath, fever, diarrhea, acute joint pain or swelling. Initial lab workup revealed troponin 310. EKG with a sinus rhythm. UDS positive for methamphetamine and fentanyl. 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 pt left AMA despite multiple attempt from nursing to explain to home the risk vs benefit Condition at Discharge: Fair Final Diagnosis/Problems List see above Discharge Disposition: AMA Discharge Statement: "Patient was advised to return to the ER or call 911 if any headaches, dizziness, shortness of breath, chest pain, abdominal pain, bleeding, fevers, or worsening of medical condition. Patient was counseled about treatment plan, medications, possible side effects, patientverbalized understanding. All questions were answered to the best of my ability. This discharge took greater then 30 minutes in planning, reviewing documentation, counseling the patient, and discussing with other team members." ASSESSMENT ASSESSMENT Assessment Date of Service: November 30, 2024 Billing Provider: ROSHNI KWAN DO Common Visit Codes: 22254-HDI/OBS DISCH DAY >30min ROSHNI KWAN DO Dec 02, 2024 22:40
== END 2024-11-30 10:27 | disposition left against medical advice (07) | DRG 812 ==
LOC: ER 20:49 → EDBD 20:49 → OVERFLOW 23:38
PROVIDERS: ADMIT Internal Medicine; ATTEND Internal Medicine
DX: T40.691A Poisoning by other narcotics, accidental (unintentional), initial encounter (principal); G92.8 Other toxic encephalopathy; I21.A1 Myocardial infarction type 2; I35.1 Nonrheumatic aortic (valve) insufficiency; G40.909 Epilepsy, unspecified, not intractable, without status epilepticus; I78.1 Nevus, non-neoplastic; F19.10 Other psychoactive substance abuse, uncomplicated; F17.210 Nicotine dependence, cigarettes, uncomplicated; F15.90 Other stimulant use, unspecified, uncomplicated; Z53.29 Procedure and treatment not carried out because of patient's decision for other reasons; Z86.61 Personal history of infections of the central nervous system; Z82.49 Family history of ischemic heart disease and other diseases of the circulatory system; Z83.3 Family history of diabetes mellitus; Y92.89 Other specified places as the place of occurrence of the external cause
CPT/HCPCS: 36415; 71045; 76705; 80048; 80053; 80076; 80307; 80320; 81001; 82140; 82306; 82607; 82746; 83036; 83735; 84443; 84484; 85025; 86705; 86706; 86708; 86709; 86803; 87340; 93005; 93306; 99291; G0378